=== PATIENT | female | born 1990 | race Caucasian/White ===

== ENCOUNTER 2023-08-28 13:05 | Outpatient (AMB) | payer BC, SELFPAY ==
[2023-08-28 13:09] VITALS: BP 110/66; PULSE 94; O2SAT 100; BMI 29.2
--- NOTE | 2023-08-28 13:09 | MHC.PC.OV ---
Vital Signs 08/28/23 13:09 Height 5 ft 6 in Weight 181 lb BMI 29.2 BP 110/66 Blood Pressure Location Rt brachial Position Sitting Pulse 94 Pulse Source Pulse Oximeter Pulse Oximetry (%) 100 Oxygen Delivery Method Room Air Intake Visit Reasons: AB Pain Intake Note: Pt is here today for a sick visit. Pt c/o abdominal pain above her bellybutton. Pt states that she thinks its hernia. Allergies No Known Allergies Allergy (Verified 08/28/23 13:11) Medication List - Last Reconciled 08/28/23 by Rehan Espino MD No Known Home Meds Tobacco use date assessed: 08/28/23 Dental Screening Dental Screen Date: 08/28/23 Did you have a dental visit in the last 12 months?: Yes Did you have a dental problem in the last 6 months where you did not have access to dental care?: No Was dental information given to patient?: Patient has dentist HPI AB Pain HPI Details Patient is a 33-year-old female who gave to a baby April of 2023 and developed umbilical hernia after The past 2 days it has been tender, she says that it is not as tender as it was 2 days ago but still feeling discomfort. On examination patient has a lump just above the umbilicus which is tender to pressure, no local signs of infection or inflammation over the skin Rest of her abdomen is benign bowel sound positive There is no nausea vomiting I have ordered CT scan to be done as soon as possible and a referral to surgery urgently. Patient was instructed to go to emergency room if pain got worse or she started having nausea or vomiting or fever [facility] Social History Housing: House Patient Tobacco Use Status: Never used Tobacco e-Cigarette/Vaping Use: Never Used service: No Current occupational status: employed Cognitive needs: No Hearing needs: No Vision needs: Yes (contacts) Questionnaire PHQ-9 Over the last 2 weeks, how often have you been bothered by any of the following problems? 1. Little interest or pleasure in doing things: not at all 2. Feeling down, depressed, or hopeless: several days 3. Trouble falling or staying asleep, or sleeping too much: several days 4. Feeling tired or having little energy: several days 5. Poor appetite or overeating: not at all 6. Feeling bad about yourself - or that you are a failure or have let yourself or your family down: not at all 7. Trouble concentrating on things, such as reading the newspaper or watching television: not at all 8. Moving or speaking so slowly that other people could have noticed. Or the opposite - being so fidgety or restless that you have been moving around a lot more than usual: not at all 9. Thoughts that you would be better off or of hurting yourself in some way: not at all Total score: 3 Depression Screening Interpretation: Negative Depression Screening Done: Yes 52666 - PHQ-9 Billing: Yes Source: Developed by Drs. Karl Brantley, Pau Cool, Jonathon Ortega and colleagues, with an educational guzman from [employer]. Thrive Questionnaire Date Thrive assessed: 08/28/23 I am a: Patient What is your living situation today?: I have a steady place to live Within the past 12 months, did the food you bought not last and you didn't have the money to get more?: Never true Within the past 12 months, did you worry whether your food would run out before you got money to buy more?: Never true Do you have trouble paying for medicines?: No Do you have trouble getting transportation to medical appointments?: No Do you have trouble paying your heating and electricity bill?: No Do you have trouble taking care of your child, family member or friend?: No Do you have trouble with day-to-day activities such as bathing, preparing meals, shopping, managing finances, etc.?: No Are you currently unemployed and looking for a job?: No Are you interested in more education?: No Please select the resources that you would like help with: None Currently or been in a relationship where the following occur: no concerns reported AUDIT C Alcohol Use Questionnaire (AUDIT-C) 1. How often do you have a drink containing alcohol?: Monthly or less 2. How many drinks containing alcohol do you have on a typical day when you are drinking?: 1 or 2 3. How often do you have six or more drinks on one occasion?: Never Total Score: 1 Score Reviewed/Action Taken: No BRITT-7 AMB Questionnaire BRITT-7 Date BRITT - 7 assessed: 08/28/23 Feeling nervous, anxious, or on edge: 2 = More than half the days Not being able to stop or control worryin = Several days Worrying too much about different things: 1 = Several days Trouble relaxin = Several days Being so restless that it is hard to sit still: 0 = Not at all Becoming easily annoyed or irritable: 1 = Several days Feeling afraid as if something awful might happen: 1 = Several days Total BRITT-7 score (0-4 normal; 5-9 mild; 10-14 moderate; 15-21 severe): 7 Source: Developed by Drs. Karl Brantley, Pau Cool, Jonathon Ortega and colleagues, with an educational guzman from [employer]. BRITT-7 Assessment Billing BRITT-7 Assessment Tool: BRITT-7 Assessment 60138 Review of Systems Const Denies chills and Denies fever(s) ENT Denies epistaxis and Denies nasal discharge Card Denies chest pain Resp Denies chest congestion, Denies cough and Denies hemoptysis GI Denies diarrhea and Denies nausea Skin/Breast Denies rash Neuro Reports no additional complaints Psych Reports no additional complaints Endo Reports no additional complaints Physical exam (Primary Care) Vital Signs: Last Vital Signs Pulse 94 08/28/23 13:09 BP 110/66 08/28/23 13:09 Pulse Ox 100 08/28/23 13:09 Oxygen Delivery Method Room Air 08/28/23 13:09 BMI result Body Mass Index 29.2 Tobacco/Smoking Status: Tobacco use Status Tobacco use date assessed 08/28/23 08/28/23 13:14 Patient Tobacco Use Status Never used Tobacco 08/28/23 13:14 e-Cigarette/Vaping Use Never Used 08/28/23 13:14 PHQ-9: PHQ-9 Score PHQ-9: Total score 3 08/28/23 13:14 Depression Screening Interpretation: Negative Thrive Assessment: Date of Thrive Assessment Date Thrive assessed 08/28/23 08/28/23 13:14 Currently or been in a relationship where the following occur: no concerns reported Const General: cooperative, comfortable and no acute distress Orientation/consciousness: patient oriented x3 HENMT Head: Yes normocephalic Eyes General: appearance normal, both eyes and all related structures Neck Neck: Yes supple Resp Effort & Inspection: normal respiratory effort, no cough and no stridor Cardio Rhythm: regular rhythm Heart sounds: S1 normal heart sound present and S2 normal heart sound present GI Abdomen image: 1. Lump size of lemon, firm to palpation and tender, no overlying signs of skin inflammation or infection Rest of the abdomen is benign with bowel sound positive. Nontender Skin General skin exam: turgor normal Neuro General: patient oriented x3, tone normal and moves all extremities Extrem Right lower extremity: no edema Left lower extremity: no edema Assessment and Plan Assessment & Plan (1) Umbilical hernia without mention of obstruction or gangrene: Code(s): K42.9 - Umbilical hernia without obstruction or gangrene Qualifiers: Obstruction and gangrene presence: without obstruction or gangrene Qualified Code(s): K42.9 - Umbilical hernia without obstruction or gangrene Plan Patient is a 33-year-old female who gave to a baby April of 2023 and developed umbilical hernia after The past 2 days it has been tender, she says that it is not as tender as it was 2 days ago but still feeling discomfort. On examination patient has a lump just above the umbilicus which is tender to pressure, no local signs of infection or inflammation over the skin Rest of her abdomen is benign bowel sound positive There is no nausea vomiting I have ordered CT scan to be done as soon as possible and a referral to surgery urgently. Patient was instructed to go to emergency room if pain got worse or she started having nausea or vomiting or fever Orders: Orders CT abdomen wo IV con Today K42.9 - Umbilical hernia without obstruction or gangrene Referrals General Surgery Referral K42.9 - Umbilical hernia without obstruction or gangrene Coding Level of Care Code Est Pt Level 4 (03733) Diagnoses Umbilical hernia without obstruction and without gangrene K42.9 Obstruction and gangrene presence: without obstruction or gangrene Additional Codes BRITT-7 Assessment Billing - BRITT-7 Assessment Tool: BRITT-7 Assessment 15573 ([id number])
== END 2023-08-28 14:11 | disposition home or self-care (01) ==
PROVIDERS: PCP Internal Medicine; Visit Provider Internal Medicine
DX: K42.9 Umbilical hernia without obstruction or gangrene (principal)
CPT/HCPCS: 99214

== ENCOUNTER 2023-09-02 10:56 | Outpatient (REF) | payer BC, SELFPAY ==
--- NOTE | ~2023-09-02 | CT_ITS ---
EXAMINATION: CT ABDOMEN AND PELVIS WITH CONTRAST CLINICAL INFORMATION: Umbilical hernia without obstruction or gangrene COMPARISON: None available. TECHNIQUE: Multidetector volumetric images were obtained from the superior aspect of the liver through the pubic symphysis following administration 85 mL of Omnipaque 350 intravenous contrast. Sagittal and coronal reformatted images were obtained on the technologist's workstation. Oral contrast: Yes This CT examination was performed using dose optimization techniques as appropriate, variously including the following: *Automated exposure control *Adjustment of mA and/or kV according to patient size (this includes techniques or standardized protocols for targeted exams where dose is matched to indication/reason for exam; i.e. extremities or head) *Use of iterative reconstruction technique DLP: 451 mGy-cm FINDINGS: LUNG BASES: The visualized lung bases are unremarkable. LIVER, GALLBLADDER, AND BILIARY TREE: The liver is enlarged measuring 18 cm in cephalocaudad dimension with decreased attenuation suggesting hepatic steatosis. A few scattered subcentimeter hypodensities are seen consistent with cysts. No focal hepatic lesion or biliary ductal dilatation is present. The gallbladder is unremarkable with no evidence of radiopaque gallstones, gallbladder wall thickening, or obvious pericholecystic inflammatory changes. PANCREAS: Unremarkable. SPLEEN: Unremarkable. ADRENAL GLANDS: Unremarkable. KIDNEYS AND URETERS: The kidneys are normal in size, shape, and attenuation. Multiple bilateral cortical and parapelvic benign Bosniak class I renal cysts are noted which require no additional imaging or follow-up. No solid renal masses are seen. No hydronephrosis, hydroureter, or calculi seen. No perinephric stranding. BLADDER: Unremarkable. GASTROINTESTINAL TRACT: The small and large bowel are unremarkable. The appendix is unremarkable. ABDOMINAL WALL: Small periumbilical hernia seen containing fat and a tiny amount of fluid. The sac measures 2.1 x 2.3 x 2.5 cm. The peritoneal opening is 1.5 cm in diameter. No other hernias are seen. LYMPH NODES: No retroperitoneal lymphadenopathy VASCULAR: There is reflux present in the dilated left gonadal vein with small to moderate left-sided pelvic varices. The aorta and iliofemoral vessels are unremarkable. The left renal vein is retroaortic PELVIC VISCERA: The uterus and adnexa are unremarkable. OSSEOUS STRUCTURES: Unremarkable. CT/CT abdomen pelvis w IV con IMPRESSION: 1. Small periumbilical hernia containing fat and a tiny amount of fluid. 2. Enlarged fatty liver. 3. Benign Bosniak class I renal cysts which require no additional imaging or follow-up. 4. 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 This can be a cause of chronic pelvic pain. If the patient has symptoms of pelvic venous insufficiency, consultation with interventional radiology may be of value. Fleischner guidelines were followed.
[2023-09-02] MEDS: iohexoL 350 MG/ML 100 ML INFUS..BTL IV (13:58)
[2023-09-02] MEDS: Barium Sulfate Oral (Vanilla) 450 ML ORAL.SUSP 900 ML PO (13:59)
== END 2023-09-02 10:57 | disposition home or self-care (01) ==
LOC: HO.CT 10:56
PROVIDERS: PCP Internal Medicine; Visit Provider Internal Medicine
DX: K42.9 Umbilical hernia without obstruction or gangrene (principal)
CPT/HCPCS: 74177; Q9967

== ENCOUNTER 2023-09-10 11:13 | Outpatient (AMB) | payer BC, SELFPAY ==
--- NOTE | 2023-09-10 11:16 | A.OFFVIS_ITS ---
Intake Vital Signs 09/10/23 11:23 Height 5 ft 6 in Weight 181 lb 2 oz BMI 29.2 BP 130/72 Blood Pressure Location Lt brachial Position Sitting Pulse 90 Intake Visit Reasons: Umbilical hernia Intake Note: Patient is seen in office for evaluation and treatment of an umbilical hernia repair. 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 She reports the hernia developed soon after she delivered her child approximately 4 months ago. She initially was asymptomatic however approximately 1 month ago had an episode of coughing which lasted approximately 1 week which resulted in increased pain and swelling in the umbilicus. She continues to have some discomfort in the umbilicus when straining and lifting but denies any nausea, vomiting, fever or chills. She denies a previous history of surgery in the umbilicus. She has not interested in having any further children at this time. A CT abdomen and pelvis was performed which confirmed a small umbilical hernia measuring approximately 2 cm in diameter. [facility] Social History Housing: House Patient Tobacco Use Status: Never used Tobacco e-Cigarette/Vaping Use: Never Used service: No Current occupational status: employed Cognitive needs: No Hearing needs: No Vision needs: Yes (contacts) Review of Systems Const All systems reviewed & are unremarkable except as noted in HPI and below Physical Exam Const General: no acute distress and well developed Nutritional Appearance: well nourished Orientation/consciousness: patient oriented x3 Limitations: no limitations HEENT Head: Yes normocephalic and Yes atraumatic Ears: hearing grossly normal bilaterally Resp Effort & Inspection: normal respiratory effort, no audible wheezes, no cough and no respiratory distress GI Other: Reducible umbilical hernia measuring approximately 2 cm in diameter. Minimal to no tenderness noted with palpation Inspection: Yes normal to inspection Palpation (GI): Soft to palpation, nontender, no guarding and not rigid Skin Other: Warm, dry, no rash Neuro General: patient oriented x3 Extrem General: Yes no clubbing, cyanosis or edema Assessment & Plan Assessment & Plan (1) Umbilical hernia without mention of obstruction or gangrene: Code(s): K42.9 - Umbilical hernia without obstruction or gangrene Qualifiers: Obstruction and gangrene presence: without obstruction or gangrene Qualified Code(s): K42.9 - Umbilical hernia without obstruction or gangrene Plan 33-year-old female patient presenting with a reducible umbilical hernia measuring approximately 2 cm in diameter which increases in size with Valsalva maneuvers but reduces with light pressure. She reports increased symptoms after coughing episode, therefore I would recommend repair on elective basis. After discussion of the procedure, risks, and alternatives, she consents to repair of the umbilical hernia with mesh. This will be performed as a short-stay surgery at her earliest convenience. Coding Level of Care Code New Pt Level 4 (07989) Diagnoses Umbilical hernia without obstruction and without gangrene K42.9 Obstruction and gangrene presence: without obstruction or gangrene
[2023-09-10 11:23] VITALS: BP 130/72; PULSE 90; BMI 29.2
== END 2023-09-10 11:44 | disposition home or self-care (01) ==
PROVIDERS: PCP Internal Medicine; Referring Provider Internal Medicine; Visit Provider Surgery
DX: K42.9 Umbilical hernia without obstruction or gangrene (principal)
CPT/HCPCS: 99204

== ENCOUNTER → 2023-09-10 11:13 | Outpatient (BNVA) | payer BC, SELFPAY | PROVIDERS: PCP Internal Medicine; Referring Provider Internal Medicine; Visit Provider Surgery ==

== ENCOUNTER 2023-09-16 07:02 | Day surgery (SDC) | payer BC, SELFPAY ==
--- NOTE | 2023-09-15 09:30 | HO.ANESPROP2 ---
Documented by User: Yanci Jacobs NP 09/15/23 09:30 HPI - Anesthesia Eval Consult details Narrative: 33yo F for Hernia Umbilical Reducible with mesh PMFSH Active Problems Active Problems: All Active Problems (Updated 08/28/23 @ 13:28 by Rehan Espino MD) Umbilical hernia without mention of obstruction or gangrene (Acute) Nipple soreness (Acute) Low back pain (Acute) Social History Social History Housing: House Patient Tobacco Use Status: Never used Tobacco e-Cigarette/Vaping Use: Never Used service: No Current occupational status: employed Cognitive needs: No Hearing needs: No Vision needs: Yes (contacts) Meds Allergies Allergy/AdvReac Type Severity Reaction Status Date / Time No Known Allergies Allergy Verified 09/16/23 07:14 Assessment and Plan Assessment Anesthesia Assessment: Chart Reviewed Documented by User: Anette Rodriguez MD 09/16/23 08:38 PMFSH Surgical History History of Problems with Anesthesia: No Social History Social History Housing: House Patient Tobacco Use Status: Never used Tobacco e-Cigarette/Vaping Use: Never Used service: No Current occupational status: employed Cognitive needs: No Hearing needs: No Vision needs: Yes (contacts) Meds Allergies Allergy/AdvReac Type Severity Reaction Status Date / Time No Known Allergies Allergy Verified 09/16/23 07:14 Exam Airway Mallampati Class: II TM Dist: >3cm Neck ROM: Full Loose/Missing/Broken Teeth: No Heart: RRR Lungs: CTA Assessment and Plan Assessment Anesthesia Assessment: Anesthesia Plan Discussed Final Anesthetic Review History of Problems with Anesthesia: No NPO: Yes ASA Class: I Final Preanesthetic Review: Meds/Allgs Chart Reviewed, Consent Obtained/Reviewed and Anes Risks/Benef Reviewed Patient Risk: Low Procedure Risk: Low Anesthetic Plan Anesthetic Plan: GA Disposition: Standard PACU
[2023-09-16 07:10] VITALS: BMI 30.1
[2023-09-16 07:20] VITALS: BP 124/85; PULSE 95; RESP 16; TEMP 37.1; O2SAT 99
[2023-09-16 07:41] LABS: UPreg QC Valid YES; Urine Pregnancy NEGATIVE (NEGATIVE)
[2023-09-16] MEDS: Lactated Ringers 1,000 ML 100 ML IVCONT (08:00)
--- NOTE | 2023-09-16 08:33 | MHC.SHP ---
Pre-Procedural Eval Section A Date of Service: 09/16/23 The patient is an INPATIENT: No Changes since office visit: Yes Patient answered all questions; No Cold of Flu in the past 2 weeks, No New Medical Problems and No Changes in Medication The History & Physical has been completed within 30 days and I have reviewed it.: Yes Section B Chief Complaint: Umbilical hernia without obstruction or gangrene Allergies: Allergies Allergy/AdvReac Type Severity Reaction Status Date / Time No Known Allergies Allergy Verified 09/16/23 07:14 Plan Diagnosis/Plan: Unchanged I have reviewed the history and physical and performed a pertinent physical examination on my patient. No changes have occurred unless specified. Time Spent With Patient Time: Total time managing care of this patient today ____ minutes.
--- NOTE | 2023-09-16 09:52 | P.OP_ITS ---
Operative Note Operative Note Date of Service: 09/16/23 Narrative: Preoperative diagnosis: Umbilical hernia, reducible Postoperative diagnosis: Same Procedure: Repair of umbilical hernia with mesh Surgeon: Stevie Guadalupe MD Stereo Equipment Repairer: None Anesthesia: General LMA Indications for procedure: 33-year-old female patient with a gradually enlarging umbilical hernia causing discomfort especially with lifting and straining. On examination the patient is found to have a 2 cm reducible umbilical hernia Operative findings: 2 cm reducible umbilical hernia Specimen: None Estimated blood loss: Less than 2 mL Complications: None Procedure details: Patient was brought to the OR and placed in a supine position. After administering general anesthesia the patient's abdomen was prepped with ChloraPrep and draped in a sterile fashion. A surgical time-out was called the consent confirmed. Patient received preoperative antibiotics and Venodyne boots were in place. Local anesthesia consisting of 0.5% Sensorcaine was infiltrated a curvilinear fashion above the umbilicus. Incision was then made with a scalpel carried out through subcutaneous tissue up to the hernia sac. The hernia sac was then bluntly dissected using a hemostat. The umbilical skin was dissected off the fascia using electrocautery. Hernia sac was then dissected down to the fascial edge. The hernia sac was reduced and a preperitoneal space created using electrocautery and sharp dissection. Hemostasis was assured all times using electrocautery. A 4.3 cm round Ventralex mesh was then obtained. This was deployed within the preperitoneal space and secured to the fascia using a 0 Tycron suture. Fascia was then closed over the mesh using [id number] 0 Tycron sutures. Wounds were then irrigated with saline solution and suctioned dry. Additional local was infiltrated into the fascia and surrounding subcutaneous tissue. Umbilical skin was then reattached to the fascia using a 3-0 Polysorb suture. Dermis was then closed using interrupted 3-0 Polysorb sutures. Skin was closed using a running subcuticular 4-0 Polysorb suture. Steri-Strips, 2 x 2 gauze and Tegaderm were then applied. The patient tolerated the procedure well. Sponge, instrument, needle counts reported as correct. The patient was transferred to PACU in stable condition.
[2023-09-16 09:58] VITALS: BP 127/56; PULSE 96; RESP 16; TEMP 37.1; O2SAT 100
[2023-09-16 10:03] VITALS: BP 120/77; PULSE 91; RESP 16; O2SAT 100
[2023-09-16] MEDS: oxyCODONE HCl Immed Release 5 MG TABLET PO (10:07)
[2023-09-16 10:08] VITALS: BP 122/76; PULSE 92; RESP 18; O2SAT 100
[2023-09-16 10:13] VITALS: BP 119/67; PULSE 89; RESP 18; TEMP 36.7; O2SAT 100
[2023-09-16 10:28] VITALS: BP 113/68; PULSE 88; RESP 18; TEMP 37.2; O2SAT 99
== END 2023-09-16 11:20 | disposition home or self-care (01) ==
PROVIDERS: Nurse Practitioner; PCP Internal Medicine; Visit Provider Surgery
PROC: (CPT 49591; principal; 2023-09-16 08:40)
DX: K42.9 Umbilical hernia without obstruction or gangrene (principal)
CPT/HCPCS: 49591; 81025; C1781; J0131; J0665; J0690; J1100; J1885; J2250; J2371; J2405; J2704; J3010

== ENCOUNTER → 2023-09-16 07:02 | Outpatient (BNV) | payer BC, SELFPAY | PROVIDERS: PCP Internal Medicine; Visit Provider Surgery | DX: K42.9 Umbilical hernia without obstruction or gangrene (principal) | CPT/HCPCS: 49591 ==

== ENCOUNTER 2023-09-25 09:10 | Outpatient (AMB) | payer BC, SELFPAY ==
--- NOTE | 2023-09-25 09:14 | A.OFFVIS_ITS ---
Intake Vital Signs 3 09/25/23 09:21 Height 5 ft 6 in Weight 180 lb BMI 29.0 BP 121/65 Blood Pressure Location Lt brachial Position Sitting Pulse 94 Intake Visit Reasons: S/p umbilical hernia repair Intake Note: Patient is seen in office for post op assessment post umbilical hernia repair. Pt c/o: denies any concerns at the time of visit Government Affairs Director Required: No Accompanied by: Family/Other Allergies No Known Allergies Allergy (Verified 09/25/23 09:20) Medication List - Last Reconciled 09/25/23 by Stevie Guadalupe MD HPI HPI Comments 2 History of Present Illness0 Details 33-year-old female patient returning 1 w [place] following repair of an umbilical hernia with mesh. She tolerated the procedure well and reports feeling much improved today. She denies nausea, vomiting, diarrhea or constipation. She denies any bleeding or discharge from the incision. [facility] Surgical History (Updated 09/24/23 @ 15:55 by JAMAL Huitron) H/O umbilical hernia repair (09/16/23) Social History Housing: House Patient Tobacco Use Status: Never used Tobacco e-Cigarette/Vaping Use: Never Used service: No Current occupational status: employed Cognitive needs: No Hearing needs: No Vision needs: Yes (contacts) Physical Exam Const General: no acute distress Nutritional Appearance: well nourished Orientation/consciousness: patient oriented x3 Resp Effort & Inspection: normal respiratory effort GI Other: Umbilical incision is clean, dry, and intact without redness or discharge. No hernias noted with Valsalva maneuvers. Abdomen image: 2 1. Incision above the umbilicus Skin Other: Warm, dry, no rash Neuro General: patient oriented x3 Extrem General: No edema Assessment & Plan Assessment & Plan (1) Umbilical hernia without mention of obstruction or gangrene: Code(s): K42.9 - Umbilical hernia without obstruction or gangrene Qualifiers: Obstruction and gangrene presence: without obstruction or gangrene Qualified Code(s): K42.9 - Umbilical hernia without obstruction or gangrene Plan 33-year-old female status post repair of an umbilical hernia with mesh. She tolerated the procedure well and her wounds are healing nicely. She should continue to avoid lifting greater than 10 lb and return approximately 4 weeks for a final postoperative visit. Coding Level of Care Code Global (75403) Diagnoses Umbilical hernia without obstruction and without gangrene K42.9 Obstruction and gangrene presence: without obstruction or gangrene
[2023-09-25 09:21] VITALS: BP 121/65; PULSE 94; BMI 29.0
== END 2023-09-25 09:24 | disposition home or self-care (01) ==
PROVIDERS: PCP Internal Medicine; Visit Provider Surgery
DX: K42.9 Umbilical hernia without obstruction or gangrene (principal)
CPT/HCPCS: 99212

== ENCOUNTER → 2023-09-25 09:10 | Outpatient (BNVA) | payer BC, SELFPAY | PROVIDERS: PCP Internal Medicine; Visit Provider Surgery ==

== ENCOUNTER 2023-10-23 10:05 | Outpatient (AMB) | payer BC, SELFPAY ==
--- NOTE | 2023-10-23 10:08 | A.OFFVIS_ITS ---
Intake Vital Signs 10/23/23 10:11 Height 5 ft 6 in Weight 182 lb 6 oz BMI 29.4 BP 137/81 Blood Pressure Location Lt brachial Position Sitting Pulse 83 Intake Visit Reasons: 1 mth follow up umbilical hernia repair Intake Note: Patient is seen in office for one month follow up visit, post umbilical hernia repair. Pt c/o: admits to a lump in the area, denies pain or other concerns Documentation Coordinator Required: No Accompanied by: Self / Same As Patient Allergies No Known Allergies Allergy (Verified 10/23/23 10:11) HPI HPI Comments History of Present Illness Details Sydni returns today for final postoperative exam. She feels well but does note a small lump underneath the incision. She denies any changes in size and is not able to reduce it. The lump is not tender to palpation. [facility] Surgical History H/O umbilical hernia repair (09/16/23) Social History Housing: House Patient Tobacco Use Status: Never used Tobacco e-Cigarette/Vaping Use: Never Used service: No Current occupational status: employed Cognitive needs: No Hearing needs: No Vision needs: Yes (contacts) Physical Exam Vital Signs: Last Vital Signs Pulse 83 10/23/23 10:11 BP 137/81 10/23/23 10:11 BMI result Body Mass Index 29.4 Const General: no acute distress GI Other: Umbilical incision is clean, dry, and intact. No changes are noted with Valsalva maneuvers. Normal postoperative scar tissue was identified. Skin General skin exam: no rashes or lesions noted Extrem General: Yes no clubbing, cyanosis or edema Assessment & Plan Assessment & Plan (1) Umbilical hernia without mention of obstruction or gangrene: Code(s): K42.9 - Umbilical hernia without obstruction or gangrene Qualifiers: Obstruction and gangrene presence: without obstruction or gangrene Qualified Code(s): K42.9 - Umbilical hernia without obstruction or gangrene Plan 33-year-old female patient status post repair of an umbilical hernia. Her wounds are clean, dry, and intact with no evidence of a hernia recurrence. She may resume normal activity without restriction and should follow up as needed. Coding Level of Care Code Global (24423) Diagnoses Umbilical hernia without obstruction and without gangrene K42.9 Obstruction and gangrene presence: without obstruction or gangrene
[2023-10-23 10:11] VITALS: BP 137/81; PULSE 83; BMI 29.4
== END 2023-10-23 10:20 | disposition home or self-care (01) ==
PROVIDERS: PCP Internal Medicine; Visit Provider Surgery
DX: K42.9 Umbilical hernia without obstruction or gangrene (principal)
CPT/HCPCS: 99212

== ENCOUNTER → 2023-10-23 10:05 | Outpatient (BNVA) | payer BC, SELFPAY | PROVIDERS: PCP Internal Medicine; Visit Provider Surgery ==

== ENCOUNTER 2023-11-10 11:47 | Outpatient (AMB) | payer BC, SELFPAY ==
[2023-11-10 11:55] VITALS: BP 128/72; PULSE 92; O2SAT 99; BMI 29.5
--- NOTE | 2023-11-10 11:55 | MHC.PC.OV ---
Vital Signs 11/10/23 11:55 Height 5 ft 6 in Weight 182 lb 8 oz BMI 29.5 BP 128/72 Blood Pressure Location Rt brachial Position Sitting Pulse 92 Pulse Source Pulse Oximeter Pulse Oximetry (%) 99 Oxygen Delivery Method Room Air Intake Visit Reasons: Annual PE Allergies No Known Allergies Allergy (Verified 11/10/23 11:55) Medication List - Last Reconciled 11/10/23 by Rehan Espino MD No Known Home Meds Tobacco use date assessed: 11/10/23 Dental Screening Dental Screen Date: 11/10/23 Did you have a dental visit in the last 12 months?: No Did you have a dental problem in the last 6 months where you did not have access to dental care?: No Was dental information given to patient?: Patient has dentist HPI Annual PE HPI Details Patient is a 33-year-old female came in today for physical examination She was seen in August when she complained of possible umbilical hernia, CT scan was ordered which showed Small periumbilical hernia containing fat Enlarged fatty liver Left-sided pelvic varices Patient had surgery for umbilical hernia with follow-up appointment early this month CT scan report printed and handed to patient, she will discuss it further with her Obgyn currenty she has menstrual discomfort when she get her cycle Patient had impaired GGT test during , she delivered in apr 2023 we will do labs fasting [facility] Surgical History H/O umbilical hernia repair (09/16/23) Social History Housing: House Patient Tobacco Use Status: Never used Tobacco e-Cigarette/Vaping Use: Never Used service: No Current occupational status: employed Cognitive needs: No Hearing needs: No Vision needs: Yes (contacts) Questionnaire Thrive Questionnaire Date Thrive assessed: 08/28/23 I am a: Patient What is your living situation today?: I have a steady place to live Within the past 12 months, did the food you bought not last and you didn't have the money to get more?: Never true Within the past 12 months, did you worry whether your food would run out before you got money to buy more?: Never true Please select the resources that you would like help with: None THRIVE Score: 0 AUDIT C Alcohol Use Questionnaire (AUDIT-C) 1. How often do you have a drink containing alcohol?: Never 2. How many drinks containing alcohol do you have on a typical day when you are drinking?: 3 or 4 3. How often do you have six or more drinks on one occasion?: Never Total Score: 1 Score Reviewed/Action Taken: Yes BRITT-7 AMB Questionnaire BRITT-7 Date BRITT - 7 assessed: 08/28/23 Feeling nervous, anxious, or on edge: 2 = More than half the days Not being able to stop or control worryin = Nearly every day Worrying too much about different things: 1 = Several days Trouble relaxin = More than half the days Being so restless that it is hard to sit still: 1 = Several days Becoming easily annoyed or irritable: 2 = More than half the days Feeling afraid as if something awful might happen: 2 = More than half the days Total BRITT-7 score (0-4 normal; 5-9 mild; 10-14 moderate; 15-21 severe): 13 Source: Developed by Drs. Karl Brantley, Pau Cool, Jonathon Ortega and colleagues, with an educational guzman from [employer]. BRITT-7 Assessment Billing BRITT-7 Assessment Tool: BRITT-7 Assessment 25003 (To be evaluated by behavior health coordinator) Review of Systems Const Denies chills, Denies fever(s) and Denies headache(s) Eyes Denies blurry vision ENT Denies headache(s), Denies nasal discharge, Denies nasal obstruction, Denies odynophagia and Denies sinus pain Card Denies chest pain at rest and Denies chest pain with activity Resp Denies cough and Denies hemoptysis GI Denies diarrhea, Denies odynophagia, Denies vomiting and Denies hematemesis Reports as per HPI Musc Denies abnormal gait Skin/Breast Reports as per HPI Neuro Denies Neuro-related abnormal movements, Denies Abnormal speech present, Denies abnormal gait, Denies headache(s) and Denies Sensory deficit (Neuro) Psych Denies mood swings and Denies paranoia Endo Reports as per HPI Nick/Lymph Reports as per HPI Aller/Immun Reports as per HPI Physical exam (Primary Care) Vital Signs: Last Vital Signs Pulse 92 11/10/23 11:55 BP 128/72 11/10/23 11:55 Pulse Ox 99 11/10/23 11:55 Oxygen Delivery Method Room Air 11/10/23 11:55 BMI result Body Mass Index 29.5 Tobacco/Smoking Status: Tobacco use Status Tobacco use date assessed 11/10/23 11/10/23 11:57 Patient Tobacco Use Status Never used Tobacco 11/10/23 11:57 e-Cigarette/Vaping Use Never Used 11/10/23 11:57 Thrive Assessment: Date of Thrive Assessment Date Thrive assessed 08/28/23 11/10/23 11:57 Const General: cooperative, comfortable and no acute distress Orientation/consciousness: patient oriented x3 HENMT Head: Yes normocephalic and Yes atraumatic Eyes General: appearance normal, both eyes and all related structures Pupils: Equal, round and reactive pupils present EOM: EOMs intact bilaterally Neck Neck: Yes supple and No lymphadenopathy Thyroid: Thyroid normal Lymphatic: no lymphadenopathy noted Resp Effort & Inspection: normal respiratory effort and able to speak in complete sentences Auscultation: clear to auscultation bilaterally Cardio Heart sounds: S1 normal heart sound present and S2 normal heart sound present GI Palpation (GI): Soft to palpation and nontender Auscultation: normal bowel sounds General: Yes no CVA tenderness Back/Spine/Pelvis Back: no CVA tenderness Skin General skin exam: elasticity normal and turgor normal Neuro General: patient oriented x3 and gait normal Cranial nerves: Yes Equal, round and reactive pupils present Speech: No Abnormal speech present Sensory Exam: No Sensory deficit (Neuro) Coordination: tandem gait normal and Romberg test negative Extrem General: Yes normal exam except as noted and No edema Assessment and Plan Assessment & Plan (1) Encounter for general adult medical examination with abnormal findings: Code(s): Z00.01 - Encounter for general adult medical examination with abnormal findings (2) Pelvic varices: Code(s): I86.2 - Pelvic varices (3) Impaired glucose tolerance: Code(s): R73.02 - Impaired glucose tolerance (oral) (4) Over weight: Code(s): E66.3 - Overweight (5) Anxiety, generalized: Code(s): F41.1 - Generalized anxiety disorder Plan Patient is a 33-year-old female came in today for physical examination She was seen in August when she complained of possible umbilical hernia, CT scan was ordered which showed Small periumbilical hernia containing fat Enlarged fatty liver Left-sided pelvic varices Patient had surgery for umbilical hernia with follow-up appointment early this month CT scan report printed and handed to patient, she will discuss it further with her Obgyn currenty she has menstrual discomfort when she get her cycle Patient had impaired GGT test during , she delivered in apr 2023 we will do labs fasting Orders: Orders Complete Blood Count Auto Diff Today I86.2 - Pelvic varices, K42.9 - Umbilical hernia without obstruction or gangrene, Z00.01 - Encounter for general adult medical examination with abnormal findings Lipid Panel Today I86.2 - Pelvic varices, K42.9 - Umbilical hernia without obstruction or gangrene, Z00.01 - Encounter for general adult medical examination with abnormal findings Hemoglobin A1c Today E66.3 - Overweight, R73.02 - Impaired glucose tolerance (oral) Comprehensive [place]. Panel Fast Today I86.2 - Pelvic varices, K42.9 - Umbilical hernia without obstruction or gangrene, Z00.01 - Encounter for general adult medical examination with abnormal findings TSH reflex Free T4 Today I86.2 - Pelvic varices, K42.9 - Umbilical hernia without obstruction or gangrene, Z00.01 - Encounter for general adult medical examination with abnormal findings Coding Level of Care Code Est Pt Prev Care 18-39y(76832) Diagnoses Encounter for general adult medical examination with abnormal findings Z00.01 Pelvic varices I86.2 Impaired glucose tolerance R73.02 Over weight E66.3 Anxiety, generalized F41.1 Additional Codes BRITT-7 Assessment Billing - BRITT-7 Assessment Tool: BRITT-7 Assessment 42452 ([id number])
== END 2023-11-10 12:07 | disposition home or self-care (01) ==
PROVIDERS: PCP Internal Medicine; Visit Provider Internal Medicine
DX: Z00.00 Encounter for general adult medical examination without abnormal findings (principal); I86.2 Pelvic varices; R73.02 Impaired glucose tolerance (oral); E66.3 Overweight; F41.1 Generalized anxiety disorder
CPT/HCPCS: 99395

== ENCOUNTER 2023-11-13 08:34 | Outpatient (REF) | payer BC, MEDICAID, SELFPAY ==
[2023-11-13 10:30] LABS: MANUAL DIFF FLAG NO
[2023-11-13 10:38] LABS: Basophils Absolute Auto 0.1 X10*3/uL (0.0-0.2); Basophils Percent Auto 0.8 % (0-2); Eosinophils Absolute Auto 0.2 X10*3/uL (0.0-0.4); Eosinophils Percent Auto 3.3 % (0-4); Hematocrit 40.4 % (37.0-47.0); Hemoglobin 13.3 g/dl (12.0-16.0); Imm Gran Abs Auto 0.01 X10*3/uL (0.00-0.03); Imm Gran Pct Auto 0.2 % (0.0-0.4); Lymphocytes Absolute Auto 2.4 X10*3/uL (1.2-4.9); Lymphocytes Percent Auto 37.6 % (20-40); Mean Corpuscular HGB Conc 32.9 g/dl (31.0-35.0); Mean Corpuscular Volume 94.2 fL (80.0-98.0); Mean Platelet Volume 11.5 fL (9.4-12.3); Monocytes Absolute Auto 0.5 X10*3/uL (0.1-1.2); Monocytes Percent Auto 7.9 % (2-11); Neutrophils Absolute Auto 3.3 x10*3/uL (2.0-8.3); Neutrophils Percent Auto 50.2 % (45-73); Platelet Count 243 X10*3/uL (160-400); Red Blood Count 4.29 X10*6/uL (4.20-5.50); Red Cell Distribution Width 11.8 % (11.0-16.0); White Blood Count 6.5 X10*3/uL (4.8-10.8)
[2023-11-13 10:54] LABS: Estimated Average Glucose 111 mg/dL; Hemoglobin A1c % 5.5 % (<6.0)
[2023-11-13 11:09] LABS: Alanine Aminotransferase 11 U/L (0-31); Albumin Level 4.5 g/dL (3.5-5.0); Alkaline Phosphatase 51 U/L (39-117); Anion Gap 12 (12-20); Aspartate Amino Transferase 13 U/L (5-31); Bilirubin Total 0.3 mg/dL (0.0-1.0); Blood Urea Nitrogen 21 mg/dL (9-16); Calcium 9.3 mg/dL (8.4-10.2); Carbon Dioxide 25 mmol/L (22-29); Chloride 106 mmol/L (96-108); Cholesterol 213 mg/dL (<200); Estimated Glomerular Filt Rate > 60; Glucose Fasting 134 mg/dL (60-99); HDL Cholesterol 65 mg/dL (>40); LDL Cholesterol Calculated 136 mg/dL (<100); Sodium 139 mmol/L (135-145); Total Protein 7.6 g/dL (6.5-8.0); Triglycerides 64 mg/dL (<150)
[2023-11-13 11:10] LABS: TSH reflex Free T4 3.95 uIU/mL (0.32-4.0)
== END 2023-11-13 08:35 | disposition home or self-care (01) ==
LOC: HO.HMGCLDS 08:34
PROVIDERS: PCP Internal Medicine; Visit Provider Internal Medicine
DX: Z00.01 Encounter for general adult medical examination with abnormal findings (principal); K42.9 Umbilical hernia without obstruction or gangrene; R73.02 Impaired glucose tolerance (oral); E66.3 Overweight; I86.2 Pelvic varices
CPT/HCPCS: 36415; 80053; 80061; 83036; 84443; 85025

== ENCOUNTER 2023-11-17 08:28 | Outpatient (REF) | payer BC, MEDICAID, SELFPAY ==
[2023-11-17 11:54] LABS: Estimated Average Glucose 114 mg/dL; Hemoglobin A1c % 5.6 % (<6.0)
[2023-11-17 12:37] LABS: Glucose Fasting 141 mg/dL (60-99)
== END 2023-11-17 08:29 | disposition home or self-care (01) ==
LOC: HO.HMGCLDS 08:28
PROVIDERS: PCP Internal Medicine; Visit Provider Internal Medicine
DX: R73.01 Impaired fasting glucose (principal)
CPT/HCPCS: 36415; 82947; 83036

== ENCOUNTER 2024-03-18 08:48 | Outpatient (AMB) | payer OTHER, SELFPAY ==
[2024-03-18 08:52] VITALS: BP 120/76; PULSE 89; O2SAT 99; BMI 28.4
--- NOTE | 2024-03-18 08:52 | A.OFFPC_ITS ---
Vital Signs 03/18/24 08:52 Height 5 ft 6 in Weight 176 lb 2 oz BMI 28.4 BP 120/76 Blood Pressure Location Rt brachial Position Sitting Pulse 89 Pulse Source Pulse Oximeter Pulse Oximetry (%) 99 Oxygen Delivery Method Room Air Intake Visit Reasons: Diabetes followup Allergies No Known Allergies Allergy (Verified 03/18/24 08:52) Medication List - Last Reconciled 03/18/24 by Rehan Espino MD No Known Home Meds Tobacco use date assessed: 03/18/24 Dental Screening Dental Screen Date: 03/18/24 Did you have a dental visit in the last 12 months?: Yes Did you have a dental problem in the last 6 months where you did not have access to dental care?: No Was dental information given to patient?: Patient has dentist HPI Diabetes followup HPI Details Patient is a 33-year-old female with a strong family history of diabetes mellitus And history of gestational diabetes Patient has had 2 abnormal fasting sugar levels However her hemoglobin A1c has been well-controlled Came in today for follow-up appointment Hemoglobin A1c is 5.5 today Patient is mindful of what she eats and is exercising regularly Lab order placed to be done before physical exam next year We will send in glucometer and diabetic supplies so patient can keep an eye on her sugar. She offers no other complaints today [facility] Surgical History H/O umbilical hernia repair (09/16/23) Social History Housing: House Patient Tobacco Use Status: Never used Tobacco e-Cigarette/Vaping Use: Never Used service: No Current occupational status: employed Cognitive needs: No Hearing needs: No Vision needs: Yes (contacts) Questionnaire PHQ-9 Over the last 2 weeks, how often have you been bothered by any of the following problems? 1. Little interest or pleasure in doing things: not at all 2. Feeling down, depressed, or hopeless: not at all 3. Trouble falling or staying asleep, or sleeping too much: several days 4. Feeling tired or having little energy: several days 5. Poor appetite or overeating: not at all 6. Feeling bad about yourself - or that you are a failure or have let yourself or your family down: not at all 7. Trouble concentrating on things, such as reading the newspaper or watching television: not at all 8. Moving or speaking so slowly that other people could have noticed. Or the o pposite - being so fidgety or restless that you have been moving around a lot more than usual: not at all 9. Thoughts that you would be better off or of hurting yourself in some way: not at all Total score: 2 Depression Screening Interpretation: Negative Depression Screening Done: Yes 09088 - PHQ-9 Billing: Yes Source: Developed by Drs. Karl Brantley, Pau Cool, Jonathon Ortega and colleagues, with an educational guzman from [employer]. Thrive Questionnaire Date Thrive assessed: 03/18/24 I am a: Patient What is your living situation today?: I have a steady place to live Within the past 12 months, did the food you bought not last and you didn't have the money to get more?: Never true Within the past 12 months, did you worry whether your food would run out before you got money to buy more?: Never true Do you have trouble paying for medicines?: No Do you have trouble getting transportation to medical appointments?: No Do you have trouble paying your heating and electricity bill?: No Do you have trouble taking care of your child, family member or friend?: No Do you have trouble with day-to-day activities such as bathing, preparing meals, shopping, managing finances, etc.?: No Are you currently unemployed and looking for a job?: No Are you interested in more education?: No Please select the resources that you would like help with: Housing/Half-Way Currently or been in a relationship where the following occur: No concerns reported THRIVE Score: 0 AUDIT C Alcohol Use Questionnaire (AUDIT-C) 1. How often do you have a drink containing alcohol?: 2-4 times a month 2. How many drinks containing alcohol do you have on a typical day when you are drinking?: 1 or 2 3. How often do you have six or more drinks on one occasion?: Never Total Score: 2 Score Reviewed/Action Taken: Yes BRITT-7 AMB Questionnaire BRITT-7 Date BRITT - 7 assessed: 03/18/24 Feeling nervous, anxious, or on edge: 2 = More than half the days Not being able to stop or control worryin = More than half the days Worrying too much about different things: 2 = More than half the days Trouble relaxin = Several days Being so restless that it is hard to sit still: 0 = Not at all Becoming easily annoyed or irritable: 1 = Several days Feeling afraid as if something awful might happen: 1 = Several days Total BRITT-7 score (0-4 normal; 5-9 mild; 10-14 moderate; 15-21 severe): 9 Source: Developed by Drs. Karl Brantley, Pau Cool, Jonathon Ortega and colleagues, with an educational guzman from [employer]. BRITT-7 Assessment Billing BRITT-7 Assessment Tool: BRITT-7 Assessment 45292 Review of Systems Const Denies chills and Denies fever(s) ENT Denies epistaxis and Denies nasal discharge Card Denies chest pain Resp Denies chest congestion, Denies cough and Denies hemoptysis GI Denies diarrhea and Denies nausea Skin/Breast Denies rash Neuro Reports no additional complaints Psych Reports no additional complaints Endo Reports no additional complaints Physical exam (Primary Care) Vital Signs: Last Vital Signs Pulse 89 03/18/24 08:52 BP 120/76 03/18/24 08:52 Pulse Ox 99 03/18/24 08:52 Oxygen Delivery Method Room Air 03/18/24 08:52 BMI result Body Mass Index 28.4 Tobacco/Smoking Status: Tobacco use Status Tobacco use date assessed 03/18/24 03/18/24 08:56 Patient Tobacco Use Status Never used Tobacco 03/18/24 08:56 e-Cigarette/Vaping Use Never Used 03/18/24 08:56 PHQ-9: PHQ-9 Score PHQ-9: Total score 2 03/18/24 09:14 Depression Screening Interpretation: Negative Thrive Assessment: Date of Thrive Assessment Date Thrive assessed 03/18/24 03/18/24 08:56 Currently or been in a relationship where the following occur: No concerns reported Const General: cooperative, comfortable and no acute distress Orientation/consciousness: patient oriented x3 HENMT Head: Yes normocephalic Eyes General: appearance normal, both eyes and all related structures Neck Neck: Yes supple Resp Effort & Inspection: normal respiratory effort, no cough and no stridor Cardio Rhythm: regular rhythm Heart sounds: S1 normal heart sound present and S2 normal heart sound present Skin General skin exam: turgor normal Neuro General: patient oriented x3, tone normal and moves all extremities Extrem Right lower extremity: no edema Left lower extremity: no edema Assessment and Plan Assessment & Plan (1) Non-insulin dependent type 2 diabetes mellitus: Code(s): E11.9 - Type 2 diabetes mellitus without complications Plan Patient is a 33-year-old female with a strong family history of diabetes mellitus And history of gestational diabetes Patient has had 2 abnormal fasting sugar levels However her hemoglobin A1c has been well-controlled Came in today for follow-up appointment Hemoglobin A1c is 5.5 today Patient is mindful of what she eats and is exercising regularly Lab order placed to be done before physical exam next year We will send in glucometer and diabetic supplies so patient can keep an eye on h er sugar. She offers no other complaints today Orders: Orders Hemoglobin A1c 6 Months E11.9 - Type 2 diabetes mellitus without complications Comprehensive [place]. Panel Fast 6 Months E11.9 - Type 2 diabetes mellitus without complications Lipid Panel 6 Months E11.9 - Type 2 diabetes mellitus without complications Microalbumin, Random (w Creat) 6 Months E11.9 - Type 2 diabetes mellitus without complications Complete Blood Count Auto Diff 6 Months E11.9 - Type 2 diabetes mellitus without complications Coding Level of Care Code Est Pt Level 3 (43943) Diagnoses Non-insulin dependent type 2 diabetes mellitus E11.9 Additional Codes BRITT-7 Assessment Billing - BRITT-7 Assessment Tool: BRITT-7 Assessment 30169 ([id number])
== END 2024-03-18 09:13 | disposition home or self-care (01) ==
PROVIDERS: PCP Internal Medicine; Visit Provider Internal Medicine
DX: E11.9 Type 2 diabetes mellitus without complications (principal)
CPT/HCPCS: 83036; 99213

== ENCOUNTER 2024-11-25 08:36 | Outpatient (REF) | payer OTHER, SELFPAY ==
--- OUTSIDE RECORDS SUMMARY | 2024-11-25 09:05 | XMS_ITS | Clinical Summary ---
Author Organization [facility] Address [address] [place] [phone] Phone Care Team Providers Care Geochemist Name Role Phone Unavailable Primary Care Provider Unavailabl e Immunizations Immunization Administration Dates Next Due DTP 04/22/1996, 3,05/04/1992,01/18,1991 H1N1 07/03/2009 HPV, Quadrivalent 05/11/2008,01/06/2008,11/05/19 08 Hep B, ped/adol 03/24/1998,04/03/1997,12/05/1996 Hib (PRP-T) 01/02/1993, 2,01/19/1992,11/16 MMR 12/05/1996,01/02/1993 Meningococcal Conj (Menactra) MCV4P 11/05/2007 OPV 12/05/1996, 3,01/19/1992,11/16 Td (adult) (MBL), 2 Lf tetan us toxoid, PF, adsorbed 11/10/2002 Tdap 11/05/2007 Varicella 04/22/1996 Family History Relation Name Status Comments Father Alive Father: Alive a nd well Mother Alive Mother: Alive a nd well Other No family histo ry of Seizure disorder, No family history of Autism, No family history of Deafness, No family history of ADD/ADHD, No family history of Diabetes mellitus, No family history of Sudden /UT under age 55, No family history of Asthma, No family history of Obesity, No family history of Developmental dislocation of hip, No family history of Strabismus/amblyopia, No family history of Migraines, No family history of Elevated cholesterol Social History Tobacco Use Types Packs/Day Years Used Date Smoking Tobacco: Never Assessed Comments Unknown Sex and Gender Information Value Date Recorded Sex Assigned at Not on file Legal Sex Female 4:32 PM EDT Gender Identity Not on file Sexual Orientation Not on file Last Filed Vital Signs Vital Sign Reading Time Taken Comments Blood Pressure - - Pulse - - Temperature 36.8 ??C (98.2 ??F) 10/26/2009 12:[address] Respiratory Rate - - Oxygen Saturation - - Inhaled Oxygen Concentration - - Weight 50.8 kg (112 lb) 11/06/2010 12:00 AM EDT Height - - Body Mass Index - - Plan of Treatment Health Maintenance Due Date Last Done Comments Varicella Vaccines (2 of 2 - 2-dose childhood series) 01/02/1997 04/22/1996 DTaP,Tdap,and Td Vaccines (7 - Td or Tdap) 11/04/2017 11/05/2007, 11/10/2002, 04/22/1996, Additional history exists Influenza Vaccines (#1) 2024 COVID-19 Vaccine ( season) 2024 HIB Vaccines Completed 01/02/1993, 04/24, 01/19/1992, Additional history exists IPV Vaccines Completed 12/05/1996, 02/21, 01/19/1992, Additional history exists MMR Vaccines Completed 12/05/1996, 01/02/1993 Hepatitis B Vaccines Completed 03/24/1998, 04/03/1997, 12/05/1996 Meningococcal Vaccine Completed 11/05/2007 HPV Vaccines Completed 05/11/2008, 12/22, 11/05/2007 Hepatitis A Vaccines Aged Out No long er eligible based on patient's age to complete this topic Men B Vaccine Aged Out No longer elig ible based on patient's age to complete this topic Pneumococcal Vaccine Aged Out No long er eligible based on patient's age to complete this topic
--- OUTSIDE RECORDS SUMMARY | 2024-11-25 09:05 | XMS_ITS | Encounter Summary ---
Author Organization [facility] Address [address] [place] [phone] Phone Care Team Providers Care Certified Dental Assistant Name Role Phone Unavailable Primary Care Provider Unavailabl e Encounter Details Date Type Department Care Team (Late st Contact Info) Description 04/09/2017 Conversion Encounter [facility] - [address] [id number] Social History Tobacco Use Types Packs/Day Years Used Date Smoking Tobacco: Never Assessed Comments Unknown Sex and Gender Information Value Date Recorded Sex Assigned at Not on file Legal Sex Female 4:32 PM EDT Gender Identity Not on file Sexual Orientation Not on file documented as of this encounter Plan of Treatment Not on file documented as of this encounter Visit Diagnoses Not on filedocumented in this encounter
[2024-11-25 10:06] LABS: MANUAL DIFF FLAG NO
[2024-11-25 10:20] LABS: Basophils Absolute Auto 0.1 X10*3/uL (0.0-0.2); Basophils Percent Auto 0.8 % (0-2); Eosinophils Absolute Auto 0.1 X10*3/uL (0.0-0.4); Hematocrit 38.3 % (37.0-47.0); Hemoglobin 12.7 g/dl (12.0-16.0); Imm Gran Abs Auto 0.01 X10*3/uL (0.00-0.03); Imm Gran Pct Auto 0.2 % (0.0-0.4); Lymphocytes Absolute Auto 2.2 X10*3/uL (1.2-4.9); Lymphocytes Percent Auto 36.2 % (20-40); Mean Corpuscular HGB Conc 33.2 g/dl (31.0-35.0); Mean Corpuscular Hemoglobin 31.3 pg (27.0-33.0); Mean Corpuscular Volume 94.3 fL (80.0-98.0); Mean Platelet Volume 12.1 fL (9.4-12.3); Monocytes Absolute Auto 0.5 X10*3/uL (0.1-1.2); Monocytes Percent Auto 7.8 % (2-11); Neutrophils Absolute Auto 3.2 x10*3/uL (2.0-8.3); Platelet Count 242 X10*3/uL (160-400); Red Blood Count 4.06 X10*6/uL (4.20-5.50); Red Cell Distribution Width 11.7 % (11.0-16.0)
[2024-11-25 10:50] LABS: Alanine Aminotransferase 11 U/L (0-31); Albumin Level 4.4 g/dL (3.5-5.0); Alkaline Phosphatase 47 U/L (39-117); Anion Gap 13 (12-20); Aspartate Amino Transferase 15 U/L (5-31); Bilirubin Total 0.5 mg/dL (0.0-1.0); Blood Urea Nitrogen 17 mg/dL (9-16); Calcium 9.2 mg/dL (8.4-10.2); Carbon Dioxide 24 mmol/L (22-29); Chloride 109 mmol/L (96-108); Cholesterol 173 mg/dL (<200); Estimated Glomerular Filt Rate > 60; Glucose Fasting 129 mg/dL (60-99); HDL Cholesterol 53 mg/dL (>40); LDL Cholesterol Calculated 108 mg/dL (<100); Potassium 3.9 mmol/L (3.3-5.1); Sodium 142 mmol/L (135-145); Total Protein 7.2 g/dL (6.5-8.0); Triglycerides 63 mg/dL (<150)
[2024-11-25 11:23] LABS: Estimated Average Glucose 128 mg/dL; Hemoglobin A1C 146.4036 umol/L; Hemoglobin A1c % 6.1 % (<6.0); Total Hemoglobin (HGBA1C) 3414.9604 umol/L
== END 2024-11-25 08:37 | disposition home or self-care (01) ==
LOC: HO.HMGCLDS 08:36
PROVIDERS: PCP Internal Medicine; Visit Provider Internal Medicine
DX: Z00.01 Encounter for general adult medical examination with abnormal findings (principal); E11.9 Type 2 diabetes mellitus without complications; F41.1 Generalized anxiety disorder; K58.2 Mixed irritable bowel syndrome; R10.9 Unspecified abdominal pain
CPT/HCPCS: 36415; 80053; 80061; 83036; 85025; 96127; 99212; 99395

== ENCOUNTER 2024-11-25 09:51 | Outpatient (AMB) | payer OTHER, SELFPAY ==
[2024-11-25 09:53] VITALS: BP 120/78; PULSE 88; O2SAT 100; BMI 28.2
--- NOTE | 2024-11-25 09:53 | A.OFFPC_ITS ---
Vital Signs 11/25/24 09:53 Height 5 ft 6 in Weight 174 lb 8 oz BMI 28.2 BP 120/78 Blood Pressure Location Rt brachial Position Sitting Pulse 88 Pulse Source Pulse Oximeter Pulse Oximetry (%) 100 Oxygen Delivery Method Room Air Intake Visit Reasons: Annual PE Allergies No Known Allergies Allergy (Verified 11/25/24 09:53) Medication List - Last Reconciled 11/25/24 by Rehan Espino MD No Known Home Meds Tobacco use date assessed: 11/25/24 Dental Screening Dental Screen Date: 11/25/24 Did you have a dental visit in the last 12 months?: Yes Did you have a dental problem in the last 6 months where you did not have access to dental care?: No Was dental information given to patient?: Patient has dentist HPI Annual PE HPI Details History of Present Illness The patient is a 34-year-old female presenting with an annual physical examination, gastrointestinal issues indicative of IBS, and mental health concerns, including anxiety and OCD. - Stomach discomfort, described as cramp -like pain, began approximately five years ago after her second . - Gastrointestinal symptoms include syd odic cramping, diarrhea, and constipation, . - The patient avoids certain trigger uvaldo ds, including eggs and fried items, resulting in partial symptom relief. - Anxiety symptoms include periods of ti ghtness and irritability, particularly in high-stress family situations in the evening. - The patient is under active psychologi sedrick care for anxiety and OCD and has been advised to maintain a food diary. Anxiety gets worse at the end of the day dealing with household stuff and kids. Sometimes has to go in the room and shut the door - Previous history of gestational diabet es during , managed with substation operator guidance. Health Maintenance - Past gestational diabetes managed with nutritional guidance. - OBGYN visit up-to-date - patient is going in for weekly therapy sessions Patient Instructions - Maintain a food diary to identify and eliminate trigger foods. - Consider eating eggs that are fully co oked. - If cramping occurs, take prescribed IB S medication 20 minutes before meals, up to three times a day if needed. - Introduce one new medication at a time to monitor for adverse reactions. - Continue therapy for anxiety and OCD a nd begin fluoxetine 10 mg as prescribed for mental health management. - Return for a follow-up in six weeks or sooner if labs indicate or symptoms worsen. Review of Systemss. - General: No fever no chills - Neurological: No headaches no dizzin ess - Ear nose throat: No sore throat no hearing difficulty no ear pain - Cardiovascular: No syncope, no chest pain, no palpitations - Gastrointestinal: No nausea vomiting or diarrhea - Endocrine: No polyuria polydipsia no heat intolerance - Genitourinary: No dysuria - Skin: No new complaints Physical Exam General: Cooperative, healthy appearing, comfortable, no acute distress Orientation: Patient oriented x3 Head: Normal to inspection Ears: Within normal limit visually Nose: Normal external nose present Face and sinus: Normal facial exam Eyes: Appearance normal, extraocular movement intact pupils reactive Neck: Normal visual inspection and supple Respiratory: Normal respiratory effort and able to speak in complete sentences. Clear to auscultation, no stridor Cardiovascular: S1 and S2 GI: Normal to inspection. Soft to palpation and nontender, Skin: Turgor normal, no acute findings Neuro: Patient oriented x3, motor sensory intact, balance intact, tandem pass Extremities: Normal to inspection [facility] Surgical History H/O umbilical hernia repair (09/16/23) Social History Housing: House Patient Tobacco Use Status: Never used Tobacco e-Cigarette/Vaping Use: Never Used service: No Current occupational status: employed Cognitive needs: No Hearing needs: No Vision needs: Yes (contacts) Questionnaire PHQ-9 Over the last 2 weeks, how often have you been bothered by any of the following problems? 1. Little interest or pleasure in doing things: several days 2. Feeling down, depressed, or hopeless: several days 3. Trouble falling or staying asleep, or sleeping too much: several days 4. Feeling tired or having little energy: several days 5. Poor appetite or overeating: several days 6. Feeling bad about yourself - or that you are a failure or have let yourself or your family down: not at all 7. Trouble concentrating on things, such as reading the newspaper or watching t elevision: several days 8. Moving or speaking so slowly that other people could have noticed. Or the opposite - being so fidgety or restless that you have been moving around a lot more than usual: not at all 9. Thoughts that you would be better off or of hurting yourself in some way: not at all Total score: 6 Depression Screening Interpretation: Negative Depression Screening Done: Yes [id number] - PHQ-9 Billing: Yes Source: Developed by Drs. Karl Brantley, Pau Cool, Jonathon Ortega and colleagues, with an educational guzman from [employer]. Thrive Questionnaire Date Thrive assessed: 11/25/24 I am a: Patient What is your living situation today?: I have a steady place to live Within the past 12 months, did the food you bought not last and you didn't have the money to get more?: Never true Within the past 12 months, did you worry whether your food would run out before you got money to buy more?: Never true Do you have trouble paying for medicines?: No Do you have trouble getting transportation to medical appointments?: No Do you have trouble paying your heating and electricity bill?: No Do you have trouble taking care of your child, family member or friend?: No Do you have trouble with day-to-day activities such as bathing, preparing meals, shopping, managing finances, etc.?: No Are you currently unemployed and looking for a job?: No Are you interested in more education?: No Please select the resources that you would like help with: None Currently or been in a relationship where the following occur: No concerns reported THRIVE Score: 0 AUDIT C Alcohol Use Questionnaire (AUDIT-C) 1. How often do you have a drink containing alcohol?: Monthly or less 2. How many drinks containing alcohol do you have on a typical day when you are drinking?: 1 or 2 3. How often do you have six or more drinks on one occasion?: Never Total Score: 1 Score Reviewed/Action Taken: Yes BRITT-7 AMB Questionnaire BRITT-7 Date BRITT - 7 assessed: 11/25/24 Feeling nervous, anxious, or on edge: 1 = Several days Not being able to stop or control worryin = Nearly every day Worrying too much about different things: 3 = Nearly every day Trouble relaxin = Several days Being so restless that it is hard to sit still: 0 = Not at all Becoming easily annoyed or irritable: 1 = Several days Feeling afraid as if something awful might happen: 3 = Nearly every day Total BRITT-7 score (0-4 normal; 5-9 mild; 10-14 moderate; 15-21 severe): 12 Source: Developed by Drs. Karl Brantley, Pau Cool, Jonathon Ortega and colleagues, with an educational guzman from [employer]. BRITT-7 Assessment Billing BRITT-7 Assessment Tool: BRITT-7 Assessment 26137 Physical exam (Primary Care) Vital Signs: Last Vital Signs Pulse 88 11/25/24 09:53 BP 120/78 11/25/24 09:53 Pulse Ox 100 11/25/24 09:53 Oxygen Delivery Method Room Air 11/25/24 09:53 BMI result Body Mass Index 28.2 Tobacco/Smoking Status: Tobacco use Status Tobacco use date assessed 11/25/24 11/25/24 09:54 Patient Tobacco Use Status Never used Tobacco 11/25/24 09:54 e-Cigarette/Vaping Use Never Used 11/25/24 09:54 PHQ-9: PHQ-9 Score PHQ-9: Total score 6 11/25/24 10:15 Depression Screening Interpretation: Negative Thrive Assessment: Date of Thrive Assessment Date Thrive assessed 11/25/24 11/25/24 09:54 Currently or been in a relationship where the following occur: No concerns reported Coding Level of Care Code Est Pt Level 4 (93488) Est Pt Prev Care 18-39y(61322) Diagnoses Encounter for general adult medical examination with abnormal findings Z00.01 Non-insulin dependent type 2 diabetes mellitus E11.9 Anxiety, generalized F41.1 Irritable bowel syndrome with mixed bowel habits K58.2 Abdominal cramping R10.9 Additional Codes BRITT-7 Assessment Billing - BRITT-7 Assessment Tool: BRITT-7 Assessment 73659 ([id number]) PHQ-9 - 95400 - PHQ-9 Billing: Yes ([id number]) Assessment & Plan Assessment & Plan (1) Encounter for general adult medical examination with abnormal findings: Code(s): Z00.01 - Encounter for general adult medical examination with abnormal findings Category: Medical (2) Non-insulin dependent type 2 diabetes mellitus: Code(s): E11.9 - Type 2 diabetes mellitus without complications Category: Medical (3) Anxiety, generalized: Code(s): F41.1 - Generalized anxiety disorder Category: Medical (4) Irritable bowel syndrome with mixed bowel habits: Code(s): K58.2 - Mixed irritable bowel syndrome Category: Medical (5) Abdominal cramping: Code(s): R10.9 - Unspecified abdominal pain Category: Medical Plan History of Present Illness The patient is a 34-year-old female presenting with an annual physical examination, gastrointestinal issues indicative of IBS, and mental health concerns, including anxiety and OCD. - Stomach discomfort, described as cramp-like pain, began approximately five years ago after her second . - Gastrointestinal symptoms include periodic cramping, diarrhea, and constipation, . - The patient avoids certain trigger foods, including eggs and fried items, resulting in partial symptom relief. - Anxiety symptoms include periods of tightness and irritability, particularly in high-stress family situations in the evening. - The patient is under active psychological care for anxiety and OCD and has been advised to maintain a food diary. Anxiety gets worse at the end of the day dealing with household stuff and kids. Sometimes has to go in the room and shut the door - Previous history of gestational diabetes during , managed with nu tritionist guidance. Health Maintenance - Past gestational diabetes managed with nutritional guidance. - OBGYN visit up-to-date - patient is going in for weekly therapy sessions - diet-controlled diabetes mellitus Patient Instructions - Maintain a food diary to identify and eliminate trigger foods. - Consider eating eggs that are fully cooked. - If cramping occurs, take prescribed IBS medication 20 minutes before meals, up to three times a day if needed. - Introduce one new medication at a time to monitor for adverse reactions. - Continue therapy for anxiety and OCD and begin fluoxetine 10 mg as prescribed for mental health management. - Return for a follow-up in six weeks or sooner if labs indicate or symptoms worsen. Medications: New dicyclomine 20 mg PO TID PRN 30 tabs 0RF abdominal pain 10 days fluoxetine 10 mg PO DAILY 90 caps 0RF Anxiety/OCD
--- OUTSIDE RECORDS SUMMARY | 2024-11-25 11:03 | XMS_ITS | Encounter Summary ---
Author Organization [facility] Address [address] [place] [phone] Phone Care Team Providers Care Drywall Taper Helper Name Role Phone Unavailable Primary Care Provider Unavailabl e Encounter Details Date Type Department Care Team (Late st Contact Info) Description 04/09/2017 Conversion Encounter [facility] - [address] [address] Social History Tobacco Use Types Packs/Day Years [...]
--- OUTSIDE RECORDS SUMMARY | 2024-11-25 11:03 | XMS_ITS | Clinical Summary ---
Author Organization [facility] Address [address] [place] [phone] Phone Care Team Providers Care Bowling Alley Mechanic Name Role Phone Unavailable Primary Care Provider [...] Diabetes mellitus, No family history of Sudden /OK under age 55, No family history of [...]
== END 2024-11-25 10:16 | disposition home or self-care (01) ==
LOC: HO.HMCC 09:51
PROVIDERS: PCP Internal Medicine; Visit Provider Internal Medicine
DX: Z00.01 Encounter for general adult medical examination with abnormal findings (principal); E11.9 Type 2 diabetes mellitus without complications; F41.1 Generalized anxiety disorder; K58.2 Mixed irritable bowel syndrome; R10.9 Unspecified abdominal pain

== ENCOUNTER 2025-01-06 08:45 | Outpatient (AMB) | payer OTHER, SELFPAY ==
--- NOTE | 2025-01-06 08:49 | A.OFFPC_ITS ---
Vital Signs 01/06/25 08:50 Height 5 ft 6 in Weight 175 lb BMI 28.2 BP 110/80 Blood Pressure Location Rt brachial Position Sitting Respiration 14 Pulse 86 Pulse Source Pulse Oximeter Temp 98.2 F Temp Source Oral Pulse Oximetry (%) 98 Oxygen Delivery Method Room Air Intake Visit Reasons: 6 weeks f/up Allergies No Known Allergies Allergy (Verified 11/25/24 09:53) Medication List - Last Reconciled 01/06/25 by Rehan Espino MD dicyclomine 20 mg PO TID PRN 10 days fluoxetine 10 mg PO DAILY Tobacco use date assessed: 01/06/25 Dental Screening Dental Screen Date: 01/06/25 Did you have a dental visit in the last 12 months?: No Did you have a dental problem in the last 6 months where you did not have access to dental care?: No Was dental information given to patient?: No HPI 6 weeks f/up HPI Details History - The patient is a 34-year-old female pr esenting to follow-up on anxiety She has started treatment with fluoxetine at a low dosage of 10 mg, taken at night to mitigate initial side effects. - Initially experienced significant head ache and tiredness as side effects, which have since lessened with nighttime dosing. - Concerns about emotional lability, whi ch prompted the initiation of fluoxetine. - No severe abdominal pain , has improve d from last visit, inspite of not taking dicyclomine - Routine blood work in November of this ye ar, showed an increase in Hemoglobin A1c from 5.6% last year to 6.1% currently, with fasting glucose reported as 112/129 mg/dL. Problem List - anxiety - irritable bowel - Elevated Hemoglobin A1c Patient Instructions - Continue taking fluoxetine increase do se to 20 mg at night to avoid daytime tiredness. - Monitor emotional well-being and repor t changes through the patient portal. - Return for follow-up in three months. - Maintain a healthy diet to control blo od sugar levels. Should any symptoms worsen, contact the clinic. - Keep previous medication, dicyclomine for irritable bowel, on hand for [id number] usage. - Inform the clinic if there are any med ication-related side effects or concerns. Review of Systems - General: No fever no chills - Neurological: No headaches no dizziness - Ear nose throat: No sore throat no hearing difficulty no ear pain - Cardiovascular: No syncope, no chest pain, no palpitations - Gastrointestinal: No nausea vomiting or diarrhea - Endocrine: No polyuria polydipsia no heat intolerance - Genitourinary: No dysuria , no blood in urine Physical Exam General: No acute distress HEENT: No acute findings Neck: Supple Respiratory system: Able to talk in full sentences, no audible wheeze Cardiovascular: S1-S2 regular in rate and rhythm Gastrointestinal: No pain Extremities: No new findings REBEAMER: Alert awake oriented x3 motor sensory intact Skin: Normal turgor [facility] Surgical History H/O umbilical hernia repair (09/16/23) Social History Housing: House Patient Tobacco Use Status: Never used Tobacco e-Cigarette/Vaping Use: Never Used service: No Current occupational status: employed Cognitive needs: No Hearing needs: No Vision needs: Yes (contacts) Questionnaire Thrive Questionnaire Date Thrive assessed: 11/22/24 I am a: Patient What is your living situation today?: I have a steady place to live Within the past 12 months, did the food you bought not last and you didn't have the money to get more?: Never true Within the past 12 months, did you worry whether your food would run out before you got money to buy more?: Never true Do you have trouble paying for medicines?: No Do you have trouble getting transportation to medical appointments?: No Do you have trouble paying your heating and electricity bill?: No Do you have trouble taking care of your child, family member or friend?: No Do you have trouble with day-to-day activities such as bathing, preparing meals, shopping, managing finances, etc.?: No Are you currently unemployed and looking for a job?: No Are you interested in more education?: No Please select the resources that you would like help with: None Currently or been in a relationship where the following occur: No concerns reported THRIVE Score: 0 BRITT-7 AMB Questionnaire BRITT-7 Date BRITT - 7 assessed: 11/25/24 Source: Developed by Drs. Karl Brantley, Pau Cool, Jonathon Ortega and colleagues, with an educational guzman from [employer]. Physical exam (Primary Care) Vital Signs: Last Vital Signs Temp 98.2 F 01/06/25 08:50 Pulse 86 01/06/25 08:50 Resp 14 01/06/25 08:50 BP 110/80 01/06/25 08:50 Pulse Ox 98 01/06/25 08:50 Oxygen Delivery Method Room Air 01/06/25 08:50 BMI result Body Mass Index 28.2 Tobacco/Smoking Status: Tobacco use Status Tobacco use date assessed 01/06/25 01/06/25 08:51 Patient Tobacco Use Status Never used Tobacco 01/06/25 08:50 e-Cigarette/Vaping Use Never Used 01/06/25 08:50 Thrive Assessment: Date of Thrive Assessment Date Thrive assessed 11/22/24 01/06/25 08:50 Currently or been in a relationship where the following occur: No concerns reported Coding Level of Care Code Est Pt Level 3 (61953) Diagnoses Non-insulin dependent type 2 diabetes mellitus E11.9 Anxiety, generalized F41.1 Irritable bowel syndrome with mixed bowel habits K58.2 Assessment & Plan Assessment & Plan (1) Non-insulin dependent type 2 diabetes mellitus: Code(s): E11.9 - Type 2 diabetes mellitus without complications Category: Medical (2) Anxiety, generalized: Code(s): F41.1 - Generalized anxiety disorder Category: Medical (3) Irritable bowel syndrome with mixed bowel habits: Code(s): K58.2 - Mixed irritable bowel syndrome Category: Medical Plan History - The patient is a 34-year-old female presenting to follow-up on anxiety She has started treatment with fluoxetine at a low dosage of 10 mg, taken at night to mitigate initial side effects. - Initially experienced significant headache and tiredness as side effects, which have since lessened with nighttime dosing. - Concerns about emotional lability, which prompted the initiation of fluoxetine. - No severe abdominal pain , has improved from last visit, inspite of not taking dicyclomine -diet-controlled diabetes: Routine blood work in November of this year, showed an increase in Hemoglobin A1c from 5.6% last year to 6.1% currently, with fasting glucose reported as 112/129 mg/dL. Problem List - anxiety - irritable bowel - Elevated Hemoglobin A1c Patient Instructions - Continue taking fluoxetine increase dose to 20 mg at night to avoid daytime tiredness. - Monitor emotional well-being and report changes through the patient portal. - Return for follow-up in three months. - Maintain a healthy diet to control blood sugar levels. Should any symptoms worsen, contact the clinic. - Keep previous medication, dicyclomine for irritable bowel, on hand for [id number] usage. - Inform the clinic if there are any medication-related side effects or concerns. Medications: Changed From fluoxetine 10 mg PO DAILY 90 caps 0RF Anxiety/OCD To fluoxetine 20 mg PO DAILY 90 days 90 caps 0RF Anxiety/OCD
[2025-01-06 08:50] VITALS: BP 110/80; PULSE 86; RESP 14; TEMP 36.8; O2SAT 98; BMI 28.2
--- OUTSIDE RECORDS SUMMARY | 2025-01-06 09:00 | XMS_ITS | Clinical Summary ---
Author Organization [facility] Address [address] [place] [phone] Phone Care Team Providers Care Automatic Furnace Operator Name Role Phone Unavailable Primary Care Provider [...] Diabetes mellitus, No family history of Sudden /[place] under age 55, No family history of [...]
--- OUTSIDE RECORDS SUMMARY | 2025-01-06 09:00 | XMS_ITS | Encounter Summary ---
Author Organization [facility] Address [address] [place] [phone] Phone Care Team Providers Care Monogram Technician Name Role Phone Unavailable Primary Care Provider Unavailabl e Encounter Details Date Type Department Care Team (Late st Contact Info) Description 04/09/2017 Conversion Encounter [facility] - [address] [address] Social History Tobacco Use Types Packs/Day Years [...]
== END 2025-01-06 09:08 | disposition home or self-care (01) ==
LOC: HO.HMCC 08:45
PROVIDERS: PCP Internal Medicine; Visit Provider Internal Medicine
DX: E11.9 Type 2 diabetes mellitus without complications (principal); F41.1 Generalized anxiety disorder; K58.2 Mixed irritable bowel syndrome

== ENCOUNTER → 2025-01-06 08:45 | Outpatient (BNVA) | payer OTHER, SELFPAY | PROVIDERS: PCP Internal Medicine; Visit Provider Internal Medicine | DX: E11.9 Type 2 diabetes mellitus without complications (principal); F41.1 Generalized anxiety disorder; K58.2 Mixed irritable bowel syndrome | CPT/HCPCS: 99212 ==

== ENCOUNTER 2025-04-19 09:21 | Outpatient (AMB) | payer OTHER, SELFPAY ==
--- NOTE | 2025-04-19 09:23 | A.OFFPC_ITS ---
Vital Signs 04/19/25 09:24 Height 5 ft 6 in Weight 180 lb BMI 29.0 BP 120/78 Blood Pressure Location Lt brachial Position Sitting Respiration 16 Pulse 84 Pulse Source Pulse Oximeter Pulse Oximetry (%) 99 Oxygen Delivery Method Room Air Intake Visit Reasons: 3 month follow up Chief Knowledge Officer Required: No Accompanied by: Self / Same As Patient Allergies No Known Allergies Allergy (Verified 11/25/24 09:53) Medication List - Last Reconciled 04/19/25 by Rehan Espino MD fluoxetine 20 mg PO DAILY 90 days Tobacco use date assessed: 04/19/25 Dental Screening Dental Screen Date: 04/19/25 Did you have a dental visit in the last 12 months?: Yes Did you have a dental problem in the last 6 months where you did not have access to dental care?: No Was dental information given to patient?: Patient has dentist HPI 3 month follow up HPI Details Chief Complaint The patient presents with frequent headaches and unexplained bruising. History of Present Illness The patient is a 34-year-old female presenting with frequent headaches and unexplained bruising. Headaches: - The patient reports experiencing frequ ent headaches since starting fluoxetine, which she has not experienced before at such a severity. - The headaches are described as throbbi ng and significantly interfere with daily activities, impacting her ability to work. - The intensity of the headaches led to an instance where she had to call in sick at work. - The headaches seem to be constant and localized to a specific area, although the exact location is not specified. - No prior history of migraines or simil ar headaches is reported. Unexplained Bruising: - The patient reports noticing frequent bruising, particularly on her arms, without a clear inciting cause. - The bruising is unexpected and has bec ome a new concern for the patient since it was not present before current medication use. Medical History: - Currently being treated for anxiety, w kristyn was referred to in conversation regarding OCD (Obsessive-Compulsive Disorder). Medications: - Fluoxetine, initially 10 mg increased to 20 mg, taken for anxiety. Social History: - Describes sensitivity to medication; f or instance, she cannot take control due to side effects. 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 Diagnostic Results: - Labs: Normal lab results from a CBC pa rosalba conducted in November, although no specific details are described. Problem List - Headaches, possibly medication-induced - Unexplained bruising - Anxiety disorder Patient Instructions - Reduce fluoxetine dose to 10 mg for tw o weeks, then discontinue. - Start buspirone with a small dose, ini tially 5 mg, taken twice daily as needed. - Plan to repeat a CBC to investigate ca uses of bruising. - Follow-up via telephone in a couple of weeks. - Complete labs, including thyroid testi ng, at the patient's earliest convenience. Review of Systems - General: No fever no chills - Neurological: no dizziness - Ear nose throat: No sore throat no hearing difficulty no ear pain - Cardiovascular: No syncope, no chest pain, no palpitations - Gastrointestinal: No nausea vomiting or diarrhea - Endocrine: No polyuria polydipsia no heat intolerance - Genitourinary: No dysuria , no blood in urine Physical Exam General: No acute distress HEENT: Frequent headaches, throbbing, no history of migraines Neck: Supple Respiratory system: Able to talk in full sentences, no audible wheeze Cardiovascular: S1-S2 regular in rate and rhythm Gastrointestinal: No pain Extremities: Bruising on arms 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 1. Little interest or pleasure in doing things: not at all 2. Feeling down, depressed, or hopeless: not at all 3. Trouble falling or staying asleep, or sleeping too much: not at all 4. Feeling tired or having little energy: not at all 5. Poor appetite or overeating: not at all 6. Feeling bad about yourself - or that you are a failure or have let yourself or your family down: not at all 7. Trouble concentrating on things, such as reading the newspaper or watching television: not at all 8. Moving or speaking so slowly that other people could have noticed. Or the opposite - being so fidgety or restless that you have been moving around a lot more than usual: not at all 9. Thoughts that you would be better off or of hurting yourself in some way: not at all Total score: 0 Depression Screening Interpretation: Negative Depression Screening Done: Yes 88633 - PHQ-9 Billing: Yes Source: Developed by Drs. Karl Brantley, Pau Cool, Jonathon Ortega and colleagues, with an educational guzman from [employer]. Thrive Questionnaire Date Thrive assessed: 11/22/24 I am a: Patient What is your living situation today?: I have a steady place to live Within the past 12 months, did the food you bought not last and you didn't have the money to get more?: Never true Within the past 12 months, did you worry whether your food would run out before you got money to buy more?: Never true Do you have trouble paying for medicines?: No Do you have trouble getting transportation to medical appointments?: No Do you have trouble paying your heating and electricity bill?: No Do you have trouble taking care of your child, family member or friend?: No Do you have trouble with day-to-day activities such as bathing, preparing meals, shopping, managing finances, etc.?: No Are you currently unemployed and looking for a job?: No Are you interested in more education?: No Please select the resources that you would like help with: None Currently or been in a relationship where the following occur: No concerns reported THRIVE Score: 0 BRITT-7 AMB Questionnaire BRITT-7 Date BRITT - 7 assessed: 04/19/25 Feeling nervous, anxious, or on edge: 0 = Not at all Not being able to stop or control worryin = Not at all Worrying too much about different things: 0 = Not at all Trouble relaxin = Not at all Being so restless that it is hard to sit still: 0 = Not at all Becoming easily annoyed or irritable: 0 = Not at all Feeling afraid as if something awful might happen: 0 = Not at all Total BRITT-7 score (0-4 normal; 5-9 mild; 10-14 moderate; 15-21 severe): 0 Source: Developed by Drs. Karl Brantley, Pau Cool, Jonathon Ortega and colleagues, with an educational guzman from [employer]. BRITT-7 Assessment Billing BRITT-7 Assessment Tool: BRITT-7 Assessment 89539 Physical exam (Primary Care) Vital Signs: Last Vital Signs Pulse 84 04/19/25 09:24 Resp 16 04/19/25 09:24 BP 120/78 04/19/25 09:24 Pulse Ox 99 04/19/25 09:24 Oxygen Delivery Method Room Air 04/19/25 09:24 BMI result Body Mass Index 29.0 Tobacco/Smoking Status: Tobacco use Status Tobacco use date assessed 04/19/25 04/19/25 09:27 Patient Tobacco Use Status Never used Tobacco 04/19/25 09:27 e-Cigarette/Vaping Use Never Used 04/19/25 09:27 PHQ-9: PHQ-9 Score PHQ-9: Total score 0 04/19/25 09:53 Depression Screening Interpretation: Negative Thrive Assessment: Date of Thrive Assessment Date Thrive assessed 11/22/24 04/19/25 09:27 Currently or been in a relationship where the following occur: No concerns reported Coding Level of Care Code Est Pt Level 3 (94591) Diagnoses Easy bruisability R23.3 Non-insulin dependent type 2 diabetes mellitus E11.9 Anxiety, generalized F41.1 Additional Codes BRITT-7 Assessment Billing - BRITT-7 Assessment Tool: BRITT-7 Assessment 77102 ([id number]) PHQ-9 - 36309 - PHQ-9 Billing: Yes ([id number]) Assessment & Plan Assessment & Plan (1) Easy bruisability: Code(s): R23.3 - Spontaneous ecchymoses Category: Medical (2) Non-insulin dependent type 2 diabetes mellitus: Code(s): E11.9 - Type 2 diabetes mellitus without complications Category: Medical (3) Anxiety, generalized: Code(s): F41.1 - Generalized anxiety disorder Category: Medical Plan Chief Complaint The patient presents with frequent headaches and unexplained bruising. History of Present Illness The patient is a 34-year-old female presenting with frequent headaches and unexplained bruising. Headaches: - The patient reports experiencing frequent headaches since starting fluoxetine, which she has not experienced before at such a severity. - The headaches are described as throbbing and significantly interfere with daily activities, impacting her ability to work. - The intensity of the headaches led to an instance where she had to call in sick at work. - The headaches seem to be constant and localized to a specific area, although the exact location is not specified. - No prior history of migraines or similar headaches is reported. Unexplained Bruising: - The patient reports noticing frequent bruising, particularly on her arms, without a clear inciting cause. - The bruising is unexpected and has become a new concern for the patient since it was not present before current medication use. Medical History: - Currently being treated for anxiety, which was referred to in conversation regarding OCD (Obsessive-Compulsive Disorder). Medications: - Fluoxetine, initially 10 mg increased to 20 mg, taken for anxiety. Social History: - Describes sensitivity to medication; for instance, she cannot take control due to side effects. 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 Diagnostic Results: - Labs: Normal lab results from a CBC panel conducted in November, although no specific details are described. Problem List - Headaches, possibly medication-induced - Unexplained bruising - Anxiety disorder - non insulin-dependent diabetes mellitus based on fasting blood sugar with stable hemoglobin A1c Patient Instructions - Reduce fluoxetine dose to 10 mg for two weeks, then discontinue. - Start buspirone with a small dose, initially 5 mg, taken twice daily as needed. - Plan to repeat a CBC to investigate causes of bruising. - Follow-up via telephone in a couple of weeks. - Complete labs, including thyroid testing, at the patient's earliest convenience. Orders: Orders Complete Blood Count Auto Diff Today R23.3 - Spontaneous ecchymoses Comprehensive Met. Panel Today R23.3 - Spontaneous ecchymoses TSH reflex Free T4 Today R23.3 - Spontaneous ecchymoses Medications: New buspirone 5 mg PO BID 60 tabs 0RF 30 days Changed From fluoxetine 20 mg PO DAILY 90 days 90 caps 0RF Anxiety/OCD To fluoxetine 10 mg PO DAILY 15 caps 0RF Anxiety/OCD 15 days
[2025-04-19 09:24] VITALS: BP 120/78; PULSE 84; RESP 16; O2SAT 99; BMI 29.0
--- OUTSIDE RECORDS SUMMARY | 2025-04-19 09:54 | XMS_ITS | Encounter Summary ---
Author Organization [facility] Address [address] [place] [id number] Phone Care Team Providers Care Environmental Health Inspector Name Role Phone Unavailable Primary Care Provider Unavailabl e Encounter Details Date Type Department Care Team (Late st Contact Info) Description 04/09/2017 Conversion Encounter [facility] - [address] [address] Social History Tobacco Use Types Packs/Day Years [...]
--- OUTSIDE RECORDS SUMMARY | 2025-04-19 09:54 | XMS_ITS | Clinical Summary ---
Author Organization [facility] Address [address] [place] [id number] Phone Care Team Providers Care Reflexologist Name Role Phone Unavailable Primary Care Provider [...] Diabetes mellitus, No family history of Sudden /[place] under age 55, No family history of [...] - - Pulse - - Temperature 36.8 C (98.2 F) 10/26/2009 12:00 AM EST Respiratory Rate - - Oxygen Saturation - - Inhaled Oxygen Concentration - - Weight 50.8 kg (112 lb) 11/06/2010 12:00 AM EDT Height - - Body Mass Index - - Plan of Treatment Health Maintenance Due Date Last Done Comments Varicella Vaccines (2 of 2 - 2-dose childhood series) 07/31/2009 04/22/1996 DTaP,Tdap,and Td Vaccines (7 - Td or Tdap) 11/04/2017 11/05/2007, 11/10/2002, 04/22/1996, Additional history exists COVID-19 Vaccine ( season) 2024 Influenza Vaccines (#1) 2025 HIB Vaccines Completed 01/02/1993, 04/24, 01/19/1992, Additional [...]
== END 2025-04-19 09:39 | disposition home or self-care (01) ==
LOC: HO.HMCC 09:21
PROVIDERS: PCP Internal Medicine; Visit Provider Internal Medicine
DX: R23.3 Spontaneous ecchymoses (principal); E11.9 Type 2 diabetes mellitus without complications; F41.1 Generalized anxiety disorder

== ENCOUNTER 2025-04-19 09:21 | Outpatient (REF) | payer OTHER, SELFPAY ==
[2025-04-19 13:20] LABS: MANUAL DIFF FLAG NO
[2025-04-19 14:02] LABS: Hematocrit 38.9 % (37.0-47.0); Hemoglobin 12.4 g/dl (12.0-16.0); Imm Gran Abs Auto 0.02 X10*3/uL (0.00-0.03); Imm Gran Pct Auto 0.3 % (0.0-0.4); Lymphocytes Absolute Auto 1.8 X10*3/uL (1.2-4.9); Mean Corpuscular HGB Conc 31.9 g/dl (31.0-35.0); Mean Corpuscular Hemoglobin 30.6 pg (27.0-33.0); Mean Corpuscular Volume 96.0 fL (80.0-98.0); NRBC Abs Auto 0.000 X10*3/uL (0.0-0.012); NRBC Pct Auto 0.0 /100WBC (0.0-0.2); Platelet Count 259 X10*3/uL (160-400); Red Blood Count 4.05 X10*6/uL (4.20-5.50); White Blood Count 6.4 X10*3/uL (4.8-10.8)
[2025-04-19 14:32] LABS: Alanine Aminotransferase 12 U/L (0-31); Albumin Level 4.5 g/dL (3.5-5.0); Alkaline Phosphatase 51 U/L (39-117); Anion Gap 12 (12-20); Aspartate Amino Transferase 18 U/L (5-31); Blood Urea Nitrogen 14 mg/dL (9-16); Calcium 9.1 mg/dL (8.4-10.2); Carbon Dioxide 22 mmol/L (22-29); Chloride 106 mmol/L (96-108); Estimated Glomerular Filt Rate > 60; Potassium 3.8 mmol/L (3.3-5.1); Sodium 136 mmol/L (135-145); Total Protein 7.0 g/dL (6.5-8.0)
== END 2025-04-19 09:22 | disposition home or self-care (01) ==
LOC: HO.HMGCLDS 09:21
PROVIDERS: PCP Internal Medicine; Visit Provider Internal Medicine
DX: R23.3 Spontaneous ecchymoses (principal); E11.9 Type 2 diabetes mellitus without complications; F41.1 Generalized anxiety disorder; Z79.899 Other long term (current) drug therapy
CPT/HCPCS: 36415; 80053; 84443; 85025; 96127; 99212

== ENCOUNTER 2025-05-04 08:09 | Outpatient (AMB) | payer OTHER, SELFPAY ==
--- NOTE | 2025-05-04 08:37 | MHC.PC.OV ---
Intake Visit Reasons: 2 week follow up Allergies No Known Allergies Allergy (Verified 11/25/24 09:53) Medication List - Last Reconciled 05/04/25 by Rehan Espino MD buspirone 5 mg PO BID 30 days fluoxetine 10 mg PO DAILY 15 days Tobacco use date assessed: 04/19/25 Dental Screening Dental Screen Date: 04/19/25 HPI 2 week follow up HPI Details History of Present Illness The patient is a 34-year-old female presenting with management of ongoing medication regimen for mental health. Ongoing medication regimen: - The patient had been taking fluoxetine . - No episodes of headache or other symptoms were noted upon reducing the fluoxetine dosage. Buspirone administration: - The patient reported using buspirone in conjunction with fluoxetine. - Overall, the patient perceived an improvement in treatment efficacy with this combination. Bruising: - The patient noted significant improvement in bruising symptoms. - She has not observed any recent bruising incidents. - Reduction in bruising correlated with the decrease in fluoxetine dosage. - Laboratory evaluations performed showed no concerning values. Problem List - Anxiety Patient Instructions - Continue taking buspirone twice daily, in the morning and evening. - Ensure fluoxetine is taken as prescribed, maintaining awareness of potential side effects. - Schedule a follow-up appointment in four months to assess the efficacy and side effects of the medication regimen. - Refills for medication will be provided. Review of Systems - Hematologic: Denies recent bruising. - General: No fever no chills - Neurological: No headaches no dizziness - Ear nose throat: No sore throat no hearing difficulty no ear pain - Cardiovascular: No syncope, no chest pain, no palpitations - Gastrointestinal: No nausea vomiting or diarrhea [facility] Surgical History H/O umbilical hernia repair (09/16/23) Social History Housing: House Patient Tobacco Use Status: Never used Tobacco e-Cigarette/Vaping Use: Never Used service: No Current occupational status: employed Cognitive needs: No Hearing needs: No Vision needs: Yes (contacts) Questionnaire Thrive Questionnaire Date Thrive assessed: 11/22/24 I am a: Patient What is your living situation today?: I have a steady place to live Within the past 12 months, did the food you bought not last and you didn't have the money to get more?: Never true Within the past 12 months, did you worry whether your food would run out before you got money to buy more?: Never true Do you have trouble paying for medicines?: No Do you have trouble getting transportation to medical appointments?: No Do you have trouble paying your heating and electricity bill?: No Do you have trouble taking care of your child, family member or friend?: No Do you have trouble with day-to-day activities such as bathing, preparing meals, shopping, managing finances, etc.?: No Are you currently unemployed and looking for a job?: No Are you interested in more education?: No Please select the resources that you would like help with: None Currently or been in a relationship where the following occur: No concerns reported THRIVE Score: 0 BRITT-7 AMB Questionnaire BRITT-7 Date BRITT - 7 assessed: 04/19/25 Source: Developed by Drs. Karl Brantley, Pau Cool, Jonathon Ortega and colleagues, with an educational guzman from [employer]. Physical exam (Primary Care) Tobacco/Smoking Status: Tobacco use Status Tobacco use date assessed 04/19/25 05/04/25 08:38 Patient Tobacco Use Status Never used Tobacco 05/04/25 08:38 e-Cigarette/Vaping Use Never Used 05/04/25 08:38 Thrive Assessment: Date of Thrive Assessment Date Thrive assessed 11/22/24 05/04/25 08:38 Currently or been in a relationship where the following occur: No concerns reported Telehealth Telehealth Telehealth Platform: [facility] Location of provider rendering services: practice address Location of patient: address on file Patient Identification confirmed using: Name, : Yes Telehealth method: video Patient verbally consented to treatment: Yes Patient verbally consented to billing insurance company: Yes Patient informed of any privacy concerns related to visit: Yes Minutes spent on Phone/Video with Pt.: 13 Coding Level of Care Code Tele Est Pt Level 3 (20056) Diagnoses Anxiety, generalized F41.1 Assessment & Plan Assessment & Plan (1) Anxiety, generalized: Code(s): F41.1 - Generalized anxiety disorder Category: Medical Plan History of Present Illness The patient is a 34-year-old female presenting with management of ongoing medication regimen for mental health. Ongoing medication regimen: - The patient had been taking fluoxetine . - No episodes of headache or other symptoms were noted upon reducing the fluoxetine dosage. Buspirone administration: - The patient reported using buspirone in conjunction with fluoxetine. - Overall, the patient perceived an improvement in treatment efficacy with this combination. Bruising: - The patient noted significant improvement in bruising symptoms. - She has not observed any recent bruising incidents. - Reduction in bruising correlated with the decrease in fluoxetine dosage. - Laboratory evaluations performed showed no concerning values. Problem List - Anxiety Patient Instructions - Continue taking buspirone twice daily, in the morning and evening. - Ensure fluoxetine is taken as prescribed, maintaining awareness of potential side effects. - Schedule a follow-up appointment in four months to assess the efficacy and side effects of the medication regimen. - Refills for medication will be provided. Medications: Changed From fluoxetine 10 mg PO DAILY 15 days 15 caps 0RF Anxiety/OCD To fluoxetine 10 mg PO DAILY 90 caps 0RF Anxiety/OCD 90 days From buspirone 5 mg PO BID 30 days 60 tabs 0RF To buspirone 5 mg PO BID 180 tabs 0RF 90 days
--- OUTSIDE RECORDS SUMMARY | 2025-05-04 08:50 | XMS_ITS | Encounter Summary ---
Author Organization [facility] Address [address] [place] [phone] Phone Care Team Providers Care Shipping Manager Name Role Phone Unavailable Primary Care Provider Unavailabl e Encounter Details Date Type Department Care Team (Late st Contact Info) Description 04/09/2017 Conversion Encounter [facility] - [address] [address] Social History Tobacco Use Types Packs/Day Years [...]
--- OUTSIDE RECORDS SUMMARY | 2025-05-04 08:50 | XMS_ITS | Clinical Summary ---
Author Organization [facility] Address [address] [place] [phone] Phone Care Team Providers Care Plastic Block Boiler Reliner Name Role Phone Unavailable Primary Care Provider [...] Diabetes mellitus, No family history of Sudden /[place] under age 55, No family history of [...] 04/22/1996, Additional history exists Influenza Vaccines (#1) 2025 COVID-19 Vaccine ( season) 2025 HIB Vaccines Completed 01/02/1993, 04/24, 01/19/1992, [...]
== END 2025-05-04 10:46 | disposition home or self-care (01) ==
LOC: HO.HMCC 08:09
PROVIDERS: PCP Internal Medicine; Visit Provider Internal Medicine
DX: F41.1 Generalized anxiety disorder (principal)